=== PATIENT | male | born 1990 | race African-American/Black ===

== ENCOUNTER 2018-03-08 20:28 | Emergency (ER) | payer OTHER ==
[~2018-03-08] VITALS: Ht 170.2 cm; Wt 68.0 kg
--- NOTE | ~2018-03-08 | EKG ---
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
[2018-03-08 20:50] LABS: HEMATOCRIT 49.1 % (42.0-52.0); HEMOGLOBIN 16.9 gm/dL (14.0-18.0); MCH 32.9 pg (26.0-34.0); MCHC 34.5 g/dL (28.0-37.0); MCV 95.5 fL (80.0-100.0); RBC 5.14 mil/uL (4.50-6.00); RDW 13.9 % (10.5-14.5); WBC 9.2 thou/uL (4.0-11.0)
[2018-03-08 21:04] LABS: CALCIUM 8.8 mg/dL (8.5-10.1); POTASSIUM 3.5 mmol/L (3.5-5.1)
[2018-03-08 21:10] LABS: ALBUMIN 4.2 g/dL (3.4-5.0); TOTAL BILIRUBIN 0.7 mg/dL (<0.1-1.0); TOTAL PROTEIN 8.1 g/dL (6.4-8.2)
[2018-03-08 22:10] LABS: URINE BILIRUBIN NEGATIVE (Negative); URINE BLOOD TRACE (Negative); URINE CLARITY CLEAR; URINE COLOR YELLOW; URINE GLUCOSE-RANDOM* NEGATIVE (Negative); URINE KETONES TRACE (Negative); URINE LEUKOCYTES-REFLEX NEGATIVE (Negative); URINE NITRITE-REFLEX NEGATIVE (Negative); URINE PROTEIN (DIPSTICK) TRACE (Negative); URINE SPECIFIC GRAVITY 1.025 (1.005-1.035); URINE UROBILINOGEN 0.2 E.U./dl (0.2-1.0)
[2018-03-08 22:18] LABS: AMP/METHAMP Negative (Negative); BARBITURATES Negative (Negative); BENZODIAZEPINES Negative (Negative); COCAINE Negative (Negative); METHADONE Negative (Negative); OPIATES Negative (Negative); PCP Negative (Negative)
[2018-03-08 22:28] VITALS: BP 115/71
== END 2018-03-08 22:29 | disposition home or self-care (01) ==
LOC: ER 20:28
PROVIDERS: Emergency Medicine
DX: F10.129 Alcohol abuse with intoxication, unspecified (principal); R41.82 Altered mental status, unspecified; Y90.0 Blood alcohol level of less than 20 mg/100 ml